=== PATIENT | male | born 1960 | race Caucasian/White ===

== ENCOUNTER → 2018-02-08 02:12 | Outpatient (CLI) | payer OTHER, SELFPAY ==
--- NOTE | 2018-02-08 10:15 | MERGE_ITS ---
*[facility]* *[facility]* [address] [place] [address] Date of study: 02/08/2018 Transthoracic Echocardiography M-mode, complete 2D, complete spectral Doppler, and color Doppler *STUDY CONCLUSIONS* Summary: 1. Procedure narrative: Image quality was poor secondary to body habitus and poor echo windows. Definity was used to enhance delineation of left ventricular endocardial borders. 2. Left ventricle: The cavity size was dilated. Wall thickness was increased in a pattern of moderate LVH. Systolic function was at the lower limits of normal. The estimated ejection fraction was 50-55%. Although no diagnostic regional wall motion abnormality was identified, this possibility cannot be completely excluded on the basis of this study. 3. Right ventricle: The cavity size was dilated. Systolic function was reduced. 4. Left atrium: The atrium was dilated. 5. Pulmonary arteries: Pulmonary systolic pressure was increased, >= 45mm Hg. 6. Inferior vena cava: The vessel was patent and dilated. The respirophasic diameter changes were blunted (less than 50%), consistent with elevated central venous pressure. *PATIENT PRESENTATION* Height: 180.3cm ((71in) ) S/D Pressure: 144 / 74 Weight: 263.1kg ((578.8lb) ) BSA: 3.81m^2 Test start time: 10:00 AM. Test stop time: 11:20 AM. ORDERING Naomy Lancaster REFERRING Naomy Lancaster PERFORMING Unknown PERFORMING [facility] [employer] RT Ana (R)(CT), [facility] [employer] Marie Khalil *PROCEDURE DATA* Procedure information: The patient was identified by two identifiers. This study was interpreted by [facility]. Pertinent images and digital data are archived for permanent storage and are available for subsequent review. No prior study was available for comparison. Study status: Routine. Transthoracic echocardiography. M-mode, complete 2D, complete spectral Doppler, and color Doppler. A Transthoracic Echocardiogram was performed. Scanning was performed from the parasternal, apical, subcostal, and suprasternal notch acoustic windows. Images were obtained using an [id number] cardiac ultrasound machine. Image quality was poor. A 22 gauge IV was inserted by luis cuevas RDCS. Intravenous contrast (Definity) was administered by LEENA Perez)(JILL)JACOB to enhance delineation of left ventricular endocardial borders. Prior to administration at least two (2) contiguous segments of the left ventricular border were not visualized. Definity amount administered was a total of 2ml. One vial was used. A total amount of 10ml of saline was used. The saline was administered by LEENA Perez)(JILL)JACOB . Study completion: The patient tolerated the procedure well. There were no complications. History: PMH: Systolic heart murmur. LEDESMA. *CARDIAC ANATOMY* Left ventricle: The cavity size was dilated. Wall thickness was increased in a pattern of moderate LVH. Systolic function was at the lower limits of normal. The estimated ejection fraction was 50-55%. Although no diagnostic regional wall motion abnormality was identified, this possibility cannot be completely excluded on the basis of this study. Aortic valve: Trileaflet; normal thickness leaflets. Mobility was not restricted. Doppler: Transvalvular velocity was within the normal range. There was no stenosis. There was no significant regurgitation. VTI ratio of LVOT to aortic valve: 0.76. Valve area (VTI): 2.8cm^2. Indexed valve area (VTI): 0.7cm^2/m^2. Peak velocity ratio of LVOT to aortic valve: 0.69. Valve area (Vmax): 2.5cm^2. Indexed valve area (Vmax): 0.7cm^2/m^2. Mean velocity ratio of LVOT to aortic valve: 0.71. Valve area (Vmean): 2.6cm^2. Indexed valve area (Vmean): 0.7cm^2/m^2. Mean gradient (S): 4.6mm Hg. Peak gradient (S): 9.4mm Hg. Aorta: Aortic root: The aortic root was mild-moderaltly dilated (44 mm). Mitral valve: Structurally normal valve. Mobility was not restricted. Doppler: Transvalvular velocity was within the normal range. There was no evidence for stenosis. There was trivial regurgitation. Valve area by pressure half-time: 3.7cm^2. Indexed valve area by pressure half-time: 1cm^2/m^2. Peak gradient (D): 3.3mm Hg. Left atrium: Poorly visualized. The atrium was dilated. Right ventricle: Poorly visualized. The cavity size was dilated. Systolic function was reduced. Pulmonic valve: Poorly visualized. Doppler: Transvalvular velocity was within the normal range. There was no evidence for stenosis. There was no significant regurgitation. Tricuspid valve: Poorly visualized. Structurally normal valve. Doppler: Transvalvular velocity was within the normal range. There was no evidence for stenosis. There was mild regurgitation. Pulmonary artery: Poorly visualized. Pulmonary systolic pressure was increased, >= 45mm Hg. Right atrium: Poorly visualized. The atrium was dilated. Pericardium: There was no significant pericardial effusion. Systemic veins: Inferior vena cava: Well visualized. The vessel was patent and dilated. The respirophasic diameter changes were blunted (less than 50%), consistent with elevated central venous pressure. Baseline ECG: Normal sinus rhythm. Measurements Left ventricle Value Reference LV ID, ED, PLAX (H) 6.2 cm 3.5 - 6.0 LV ID, ES, PLAX 4.0 cm 2.1 - 4.0 LV PW thickness, ED, PLAX 1.3 cm LV end-diastolic volume, 1-p A2C 189 ml LV ejection fraction, 1-p A2C 57 % LV end-diastolic volume, 1-p A4C 179 ml LV ejection fraction, 1-p A4C 55 % LV e', lateral 0.148 m/sec LV E/e', lateral 6 LV e', medial 0.134 m/sec LV E/e', medial 7 LV e', average 0.141 m/sec LV E/e', average 6 Ventricular septum Value Reference IVS thickness, ED, PLAX 1.4 cm LVOT Value Reference LVOT ID, A-P 2.2 cm LVOT area 3.6 cm^2 LVOT peak velocity, S 1.06 m/sec LVOT mean velocity, S 0.72 m/sec LVOT VTI, S 20.9 cm LVOT peak gradient, S 4.5 mm Hg LVOT mean gradient, S 2.5 mm Hg Stroke volume (SV), LVOT DP 76 ml Stroke index (SV/bsa), LVOT DP 20 ml/m^2 Aortic valve Value Reference Aortic valve peak velocity, S 1.5 m/sec Aortic valve mean velocity, S 1.01 m/sec Aortic valve VTI, S 27.3 cm Aortic mean gradient, S 4.6 mm Hg Aortic peak gradient, S 9.4 mm Hg VTI ratio, LVOT/AV 0.76 Aortic valve area, VTI 2.8 cm^2 Velocity ratio, peak, LVOT/AV 0.69 Aortic valve area, peak velocity 2.5 cm^2 Velocity ratio, mean, LVOT/AV 0.71 Aortic valve area, mean velocity 2.6 cm^2 Aortic valve area/bsa, mean velocity 0.7 cm^2/m^2 Aorta Value Reference Aortic root ID, ED 4.4 cm RVOT Value Reference RVOT VTI, S 15.5 cm Left atrium Value Reference LA ID, A-P, ES 4.2 cm LA ID/bsa, A-P 1.1 cm/m^2 <=2.2 LA area, ES, A4C (H) 27.8 cm^2 8.8 - 23.4 LA volume/bsa, ES, 1-p A4C 29 ml/m^2 LA/aortic root ratio 0.96 Mitral valve Value Reference Mitral E-wave peak velocity 0.91 m/sec Mitral A-wave peak velocity 0.75 m/sec Mitral deceleration time 207 ms 150 - 230 Mitral pressure half-time 60 ms Mitral peak gradient, D 3.3 mm Hg Mitral E/A ratio, peak 1.21 Mitral valve area, PHT, DP 3.7 cm^2 Tricuspid valve Value Reference Tricuspid regurg peak velocity 3.1 m/sec Tricuspid peak RV-RA gradient 38.3 mm Hg Right atrium Value Reference RA area, ES, A4C (H) 27.2 cm^2 8.3 - 19.5 Legend: (L) and (H) pamela values outside specified reference range. I have personally reviewed the images and have reviewed and edited the reported findings. Electronically signed by Rosalee Mcknight 02/09/2018 09:16
== END ==
PROVIDERS: PCP Nurse Practitioner Family; Visit Provider Nurse Practitioner Family
DX: R01.1 Cardiac murmur, unspecified (principal); R06.09 Other forms of dyspnea; I51.7 Cardiomegaly
CPT/HCPCS: 93306; C8929

== ENCOUNTER 2018-06-13 12:54 | Outpatient (REF) | payer OTHER, SELFPAY ==
[2018-06-13 20:58] LABS: HCT 42.4 % (40.0-50.0); HGB 13.9 g/dL (13.5-17.5); Mean Corp. HGB Concentration 32.8 g/dL (32.0-36.0); Mean Corpuscular Hemoglobin 29.3 pg (27.0-33.0); Mean Corpuscular Volume 89.3 fL (80-95); Mean Platelet Volume 10.6 fL (8.0-11.0); Platelet Count 182 x1000/uL (130-400); RBC 4.75 m/cumm (4.50-6.00); RBC Distribution Width 15.7 % (11.8-14.1); White Blood Cell Count 4.71 k/cumm (4.4-10.8)
[2018-06-13 21:13] LABS: ALT 36 U/L (12-78); AST 25 U/L (15-37); Albumin 3.7 g/dL (3.4-5.0); Alkaline Phosphatase 60 U/L (46-116); Anion Gap 9.9 mmol/L (3-11); BUN 25 mg/dL (7-18); Bilirubin, Total 0.5 mg/dL (0.2-1.0); CO2 28.1 mmol/L (21.0-32.0); CREATININE 1.35 mg/dL (0.70-1.30); Calcium 8.9 mg/dL (8.5-10.1); Chloride 103 mmol/L (98-107); Cholesterol 123 mg/dL (50-200); Estimated GFR 54.87 (mL/min/1.73m2); Glucose 114 mg/dL (70-100); HDL Cholesterol 27 mg/dL (40-60); LDL CHOLESTEROL 80 mg/dL (<100); Potassium 4.3 mmol/L (3.5-5.1); Sodium 141 mmol/L (136-145); Total Protein 7.1 g/dL (6.4-8.2); Triglyceride 89 mg/dL (30-150)
== END 2018-06-13 13:14 ==
LOC: NCHCN 12:54
PROVIDERS: PCP Nurse Practitioner Family; Visit Provider Nurse Practitioner Family
DX: E11.9 Type 2 diabetes mellitus without complications (principal); I10 Essential (primary) hypertension; E78.6 Lipoprotein deficiency; I27.81 Cor pulmonale (chronic); E66.01 Morbid (severe) obesity due to excess calories
CPT/HCPCS: 80053; 80061; 83721; 85027

== ENCOUNTER 2019-11-24 16:45 | Outpatient (REF) | payer OTHER, SELFPAY ==
[2019-11-24 21:16] LABS: Abs Immature Grans 0.02 k/cumm (0.0-0.09); Absolute Basophil Count 0.01 k/cumm (0.0-0.2); Absolute Eosinophil Count 0.07 k/cumm (0.0-0.7); Absolute Monocyte Count 0.52 k/cumm (0.11-0.7); Absolute Neutrophil Count 3.48 k/cumm (1.2-6.7); Basophils % 0.2; Eosinophils % 1.3; HGB 13.3 g/dL (13.5-17.5); Immature Grans % 0.4 %; Lymphocytes % 26.8; Mean Corp. HGB Concentration 32.4 g/dL (32.0-36.0); Mean Corpuscular Volume 89.5 fL (80-95); Mean Platelet Volume 9.7 fL (8.0-11.0); Monocytes % 9.3; Platelet Count 211 x1000/uL (130-400); RBC 4.58 m/cumm (4.50-6.00); RBC Distribution Width 15.2 % (11.8-14.1)
[2019-11-24 21:39] LABS: Anion Gap 6.5 mmol/L (3-11); BUN 14 mg/dL (7-18); CO2 30.5 mmol/L (21.0-32.0); CREATININE 1.18 mg/dL (0.70-1.30); Calcium 8.6 mg/dL (8.5-10.1); Chloride 103 mmol/L (98-107); Glucose 118 mg/dL (74-106); Potassium 4.3 mmol/L (3.5-5.1); Sodium 140 mmol/L (136-145)
[2019-11-24 22:17] LABS: Hemoglobin A1C 6.8 % (3.8-5.6)
== END 2019-11-24 17:05 ==
LOC: NCHCN 16:45
PROVIDERS: PCP Nurse Practitioner Family; Visit Provider Nurse Practitioner Family
DX: E11.9 Type 2 diabetes mellitus without complications (principal); R10.32 Left lower quadrant pain; E66.01 Morbid (severe) obesity due to excess calories; I27.81 Cor pulmonale (chronic)
CPT/HCPCS: 80048; 83036; 84443; 85025

== ENCOUNTER 2021-01-10 12:11 | Outpatient (REF) | payer OTHER, SELFPAY ==
[2021-01-10 21:39] LABS: Anion Gap 6.6 mmol/L (3-11); BUN 16 mg/dL (7-18); CO2 30.4 mmol/L (21.0-32.0); Calcium 8.3 mg/dL (8.5-10.1); Chloride 106 mmol/L (98-107); Glucose 105 mg/dL (74-106); Potassium 4.5 mmol/L (3.5-5.1); Sodium 143 mmol/L (136-145)
== END 2021-01-10 12:12 | disposition home or self-care (01) ==
LOC: NCHCN 12:11
PROVIDERS: PCP Nurse Practitioner Family; Visit Provider Nurse Practitioner Family
DX: I10 Essential (primary) hypertension (principal)
CPT/HCPCS: 80048

== ENCOUNTER 2021-08-01 16:13 | Outpatient (REF) | payer OTHER, SELFPAY ==
[2021-08-01 21:29] LABS: HCT 41.9 % (40.0-50.0); HGB 12.8 g/dL (13.5-17.5); MCH 27.8 pg (27.0-33.0); MCHC 30.5 % (32.0-36.0); MCV 90.9 fL (80-95); MPV 10.3 fL (8.0-11.0); Platelet Count 212 10^3/uL (130-400); RBC 4.61 10^6/uL (4.36-5.78); RDW 14.4 % (11.8-14.1); WBC 4.49 10^3/uL (4.4-10.8)
[2021-08-01 21:45] LABS: ALT 25 U/L (16-63); AST 15 U/L (15-37); Albumin 3.3 g/dL (3.4-5.0); Alkaline Phosphatase 80 U/L (46-116); BUN 15 mg/dL (7-18); Bilirubin, Total 0.4 mg/dL (0.2-1.0); CREATININE 1.1 mg/dL (0.70-1.30); Calcium 8.4 mg/dL (8.5-10.1); Calculated LDL 78 mg/dL (<100); Chloride 105 mmol/L (98-107); Cholesterol 121 mg/dL (<200); Glucose 105 mg/dL (74-106); HDL Cholesterol 29 mg/dL (40-60); Potassium 4.4 mmol/L (3.5-5.1); Sodium 140 mmol/L (136-145); Total Protein 6.7 g/dL (6.4-8.2); Triglyceride 70 mg/dL (<150)
[2021-08-01 21:53] LABS: COMMENT (LAB VIEW ONLY) 102.63 mg/dL; Microalb ug/mg Crea 19.9 ug/mg Cr
[2021-08-02 18:14] LABS: Iron 49 ug/dL (65-175); Total Iron Binding Capacity 296 ug/dL (250-450); Transferrin Sat 17 % (20-55)
[2021-08-02 18:42] LABS: Vitamin B12 312 pg/mL (193-986)
[2021-08-03 17:39] LABS: Ferritin 114 ng/mL (22-322)
== END 2021-08-01 16:14 | disposition home or self-care (01) ==
LOC: NCHCN 16:13
PROVIDERS: PCP Nurse Practitioner Family; Visit Provider Nurse Practitioner Family
DX: I10 Essential (primary) hypertension; D64.9 Anemia, unspecified
CPT/HCPCS: 80053; 80061; 85027; 82043; 82570; 82607; 82728; 83540; 83550; 85025

== ENCOUNTER 2022-03-13 10:52 | Outpatient (REF) | payer MEDICARE, SELFPAY ==
[2022-03-13 15:52] LABS: HGB 13.5 g/dL (13.5-17.5); MCH 28.5 pg (27.0-33.0); MCHC 32.1 % (32.0-36.0); MCV 89 fL (80-95); MPV 9.7 fL (8.0-11.0); Platelet Count 196 10^3/uL (130-400); RBC 4.74 10^6/uL (4.36-5.78); RDW 14.4 % (11.8-14.1); RDW-SD 46.5 fL; WBC 5.33 10^3/uL (4.4-10.8)
[2022-03-13 16:30] LABS: Anion Gap 6.4 mmol/L (3-11); BUN 21 mg/dL (7-18); CO2 30.6 mmol/L (21.0-32.0); CREATININE 1.2 mg/dL (0.70-1.30); Calcium 8.7 mg/dL (8.5-10.1); Chloride 101 mmol/L (98-107); Estimated GFR 69.66 (mL/min/1.73m2); Glucose 137 mg/dL (74-106); Potassium 4.5 mmol/L (3.5-5.1); Sodium 138 mmol/L (136-145)
[2022-03-13 16:47] LABS: Hemoglobin A1C 7.1 % (<5.7)
== END 2022-03-13 10:53 | disposition home or self-care (01) ==
LOC: NCHCN 10:52
PROVIDERS: PCP Nurse Practitioner Family; Visit Provider Nurse Practitioner Family
DX: E11.9 Type 2 diabetes mellitus without complications (principal); D64.9 Anemia, unspecified; I10 Essential (primary) hypertension; E66.01 Morbid (severe) obesity due to excess calories
CPT/HCPCS: 80048; 85027; 83036

== ENCOUNTER 2022-10-09 15:24 | Outpatient (REF) | payer MEDICARE, SELFPAY ==
[2022-10-09 16:13] LABS: COMMENT (LAB VIEW ONLY) 71.39 mg/dL
== END 2022-10-09 15:25 | disposition home or self-care (01) ==
LOC: NCHCN 15:24
PROVIDERS: PCP Nurse Practitioner Family; Visit Provider Nurse Practitioner Family
DX: E11.9 Type 2 diabetes mellitus without complications (principal)
CPT/HCPCS: 82043; 82570

== ENCOUNTER 2023-10-23 14:40 | Outpatient (REF) | payer MEDICARE, SELFPAY ==
[2023-10-23 15:04] LABS: HGB 13.6 g/dL (13.5-17.5); MCH 28.7 pg (27.0-33.0); MCHC 31.6 % (32.0-36.0); MCV 91 fL (80-95); MPV 9.6 fL (8.0-11.0); Platelet Count 195 10^3/uL (130-400); RBC 4.74 10^6/uL (4.36-5.78); RDW 14.4 % (11.8-14.1); WBC 5.49 10^3/uL (4.4-10.8)
[2023-10-23 15:26] LABS: ALT 28 U/L (16-63); AST 20 U/L (15-37); Albumin 3.5 g/dL (3.4-5.0); Alkaline Phosphatase 72 U/L (46-116); Anion Gap 6.5 mmol/L (3-11); BUN 16 mg/dL (7-18); Bilirubin, Total 0.5 mg/dL (0.2-1.0); CO2 31.5 mmol/L (21.0-32.0); CREATININE 1.2 mg/dL (0.70-1.30); Calcium 9.1 mg/dL (8.5-10.1); Calculated LDL 81 mg/dL (<100); Chloride 104 mmol/L (98-107); Cholesterol 128 mg/dL (<200); Glucose 103 mg/dL (74-106); HDL Cholesterol 36 mg/dL (40-60); Potassium 4.4 mmol/L (3.5-5.1); Sodium 142 mmol/L (136-145); TSH 1.96 uIU/Ml (0.36-3.74); Total Protein 7.5 g/dL (6.4-8.2); Triglyceride 59 mg/dL (<150)
[2023-10-23 15:46] LABS: COMMENT (LAB VIEW ONLY) 115.84 mg/dL; Microalb ug/mg Crea 19.5 ug/mg Cr
== END 2023-10-23 14:41 | disposition home or self-care (01) ==
LOC: NCHCN 14:40
PROVIDERS: PCP Nurse Practitioner Family; Visit Provider Nurse Practitioner Family
DX: I10 Essential (primary) hypertension (principal); Z79.01 Long term (current) use of anticoagulants
CPT/HCPCS: 80053; 80061; 85027; 82043; 82570; 83036; 84443

== ENCOUNTER 2024-11-27 11:40 | Outpatient (REF) | payer MEDICARE, SELFPAY ==
[2024-11-27 15:50] LABS: HCT 39.7 % (40.0-50.0); HGB 12.5 g/dL (13.5-17.5); MCH 28.1 pg (27.0-33.0); MCHC 31.5 % (32.0-36.0); MCV 89 fL (80-95); MPV 9.7 fL (8.0-11.0); Platelet Count 188 10^3/uL (130-400); RBC 4.45 10^6/uL (4.36-5.78); RDW 14.7 % (11.8-14.1); RDW-SD 47.5 fL; WBC 5.47 10^3/uL (4.4-10.8)
[2024-11-27 16:56] LABS: ALT 27 U/L (16-63); AST 13 U/L (15-37); Albumin 3.4 g/dL (3.4-5.0); Alkaline Phosphatase 90 U/L (46-116); Anion Gap 2.7 mmol/L (3-11); BUN 16 mg/dL (7-18); Bilirubin, Total 0.6 mg/dL (0.2-1.0); CO2 33.3 mmol/L (21.0-32.0); CREATININE 0.9 mg/dL (0.70-1.30); Calcium 8.8 mg/dL (8.5-10.1); Calculated LDL 72 mg/dL (<100); Chloride 103 mmol/L (98-107); Cholesterol 116 mg/dL (<200); Estimated GFR 96.57 (mL/min/1.73m2); Glucose 126 mg/dL (74-106); HDL Cholesterol 32 mg/dL (>or=40); Potassium 4.1 mmol/L (3.5-5.1); Sodium 139 mmol/L (136-145); Total Protein 7.4 g/dL (6.4-8.2); Triglyceride 64 mg/dL (<150)
[2024-11-27 17:07] LABS: COMMENT (LAB VIEW ONLY) 49.88 mg/dL; Microalb ug/mg Crea 25.3 ug/mg Cr
[2024-11-27 23:27] LABS: Hepatitis C Ab w Rflx HCV PCR Negative (Negative)
== END 2024-11-27 11:41 | disposition home or self-care (01) ==
LOC: NCHCN 11:40
PROVIDERS: PCP Nurse Practitioner Family; Visit Provider Nurse Practitioner Family
DX: E11.9 Type 2 diabetes mellitus without complications (principal); Z79.01 Long term (current) use of anticoagulants; Z11.3 Encounter for screening for infections with a predominantly sexual mode of transmission
CPT/HCPCS: 80053; 80061; 85027; 86803; 82043; 82570; 83036

== ENCOUNTER 2024-12-17 13:33 | Outpatient (REF) | payer MEDICARE, SELFPAY ==
[2024-12-17 21:50] LABS: Abs Immature Grans 0.02 10^3/uL (0.0-0.06); HCT 42.1 % (40.0-50.0); HGB 13.2 g/dL (13.5-17.5); Immature Grans % 0.4 %; MCH 27.9 pg (27.0-33.0); MCHC 31.4 % (32.0-36.0); MCV 89 fL (80-95); MPV 10.1 fL (8.0-11.0); Platelet Count 196 10^3/uL (130-400); RBC 4.73 10^6/uL (4.36-5.78); RDW 14.9 % (11.8-14.1); RDW-SD 48.5 fL; WBC 5.69 10^3/uL (4.4-10.8)
[2024-12-17 22:12] LABS: Iron 57 ug/dL (65-175); Total Iron Binding Capacity 300 ug/dL (250-450); Transferrin Sat 19 % (20-55)
[2024-12-17 22:38] LABS: Ferritin 224 ng/mL (26-388); Folate 5.3 ng/mL (8.6-20.0); Vitamin B12 316 pg/mL (193-986)
== END 2024-12-17 13:34 | disposition home or self-care (01) ==
LOC: NCHCN 13:33
PROVIDERS: PCP Nurse Practitioner Family; Visit Provider Nurse Practitioner Family
DX: D64.9 Anemia, unspecified (principal)
CPT/HCPCS: 82607; 82728; 82746; 83540; 83550; 85025

== ENCOUNTER 2025-04-07 13:34 | Outpatient (REF) | payer MEDICARE, SELFPAY | END 2025-04-07 13:35 | disposition home or self-care (01) | LOC: NCHCN 13:34 | PROVIDERS: PCP Nurse Practitioner Family; Visit Provider Nurse Practitioner Family | DX: R39.9 Unspecified symptoms and signs involving the genitourinary system (principal) | CPT/HCPCS: 87077; 87086; 87186 ==